=== PATIENT | female | born 1955 | race Two or more races ===

== ENCOUNTER 2023-05-05 21:52 | Inpatient (IN) ==
[2023-05-05 22:06] VITALS: BMI 23.0
--- NOTE | 2023-05-05 22:20 | DR.GENAD ---
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: she started feeling really weak yesterday which has progressively worsened; no abd pain, cp, sob, n/v/d or mental status changes; she was placed on lasix last week for bp/heart but has had no other changes in medications Complaint/Symptoms Chief Complaint:: PT STATES" CHANGED BP MEDS AND NOW FELS WEAK SINCE THE CHANGE OF MEDICATIONS" COVID-19 Coronavirus risk:travel/contact w/high risk person: No Has patient experienced Coronavirus symptoms: No Source History Provided: Patient Mode of Arrival Mode of Arrival: Ambulatory Timing Onset of Chief Complaint: 05/04/23 PMH PMH Past Medical History: Yes Past Medical History: Hypertension Past Surgical History: Yes Surgical History: CABG/Valve Surgery Family History History of Family Medical Conditions: No Family Medical History: Hypertension Social History Does patient currently use any type of tobacco product: No Have you used tobacco products in the last 12 months: No Type of Tobacco Use: None Does any household member use tobacco: No Alcohol Use: None Do you use any recreational Drugs:: No Lives With: Family Lives Where: Home Travel Risk Coronavirus risk:travel/contact w/high risk person: No Has patient experienced Coronavirus symptoms: No Infectious screening In the last 2 months have you had wt loss of >10#?: NO Have you had fever, night sweats or hemotysis?: No Have you traveled outside the country in the last 6 months?: No Isolation: Standard ROS Review of Systems Constitutional: No Symptoms Reported Eyes: No Symptoms Reported ENTM: No Symptoms Reported Respiratoy: No Symptoms Reported Cardiovascular: No Symptoms Reported Gastrointestinal/Abdominal: No Symptoms Reported Genitourinary: No Symptoms Reported Neurological: No Symptoms Reported Integumentary: No Symptoms Reported Hematologic/Lymphatic: No Symptoms Reported Endocrine: No Symptoms Reported Psychiatric: No Symptoms Reported PE Vital Signs Vitals: Temperature 98.6 F Pulse Rate 61 Pulse Rate 63 Respiratory Rate 18 Blood Pressure [Right Arm] 142/78 Blood Pressure 135/63 Blood Pressure 162/73 O2 Sat by Pulse Oximetry 97 O2 Sat by Pulse Oximetry 98 General Limitations: No Limitations General Appearance: Alert and In No Apparent Distress Head Head Exam: Normal Inspection Eyes Eye exam: Normal Appearance ENT ENT Exam: Normal Exam External Ear Exam: Normal External Inspection TM/Canal Exam: Bilateral: Normal Nose Exam: Normal Nose Exam Mouth Exam: Normal Inspection Throat Exam: Normal Inspection Neck Neck Exam: Normal Inspection Chest Chest Inspection: Normal Inspection Respiratory Respiratory Exam: Normal Lung Sounds Bilat Respiratory Exam: Bilateral: Clear to Auscultation Cardiovascular Cardiovascular Exam: Regular Rate and Normal Rhythm Abdominal Exam Abdominal Exam: Normal Inspection, Normal Bowel Sounds and Soft Extremities Extremities Exam: Normal Inspection Back Back Exam: Normal Inspection Neurologic Neurological Exam: Alert and Oriented X3 Psychiatric Psychiatric Exam: Normal Affect and Normal Mood Skin Skin Exam: Warm, Dry, Intact and Normal Color COURSE Reevaluation 1st: Unchanged (resting comfortably) ROR Labs Reviewed Laboratory Results Reviewed?: Yes Result Diagrams: 05/05/23 22:30 05/05/23 22:30 Laboratory: WBC 8.0 X10^3/uL (3.6-10.0) 05/05/23 22:30 RBC 4.13 X10^6/uL (3.5-5.4) 05/05/23 22:30 Hgb 12.0 g/dL (12.0-16.0) 05/05/23 22:30 Hct 34.3 % (36.0-47.0) L 05/05/23 22:30 MCV 83.0 fL (80.0-100.0) 05/05/23 22:30 MCH 29.1 pg (27.0-34.0) 05/05/23 22:30 MCHC 35.1 g/dL (33.0-35.0) H 05/05/23 22:30 RDW 13.6 % (11.6-16.5) 05/05/23 22:30 Plt Count 205 X10^3/uL (150.0-450.0) 05/05/23 22:30 Plt Count Comment Adequate (ADEQUATE) 05/05/23 22:30 MPV 7.4 fL (7.4-11.0) 05/05/23 22:30 Neut % (Auto) 80.0 % (42.0-75.0) H 05/05/23 22:30 Lymph % (Auto) 8.1 % (21.0-51.0) L 05/05/23 22:30 Greenlee % (Auto) 8.7 % (0.0-13.0) 05/05/23 22:30 Eos % (Auto) 0.8 % (0.9-2.9) L 05/05/23 22:30 Baso % (Auto) 2.4 % (0.2-1.0) H 05/05/23 22:30 Neut # (Auto) 6.4 x10^3/uL (2.2-4.8) H 05/05/23 22:30 Lymph # (Auto) 0.6 X10^3/uL (1.3-2.9) L 05/05/23 22:30 Greenlee # (Auto) 0.7 x10^3/uL (0.3-0.8) 05/05/23 22:30 Eos # (Auto) 0.1 x10^3/uL (0.0-0.2) 05/05/23 22:30 Baso # (Auto) 0.2 X10^3/uL (0.0-0.1) H 05/05/23 22:30 Absolute Nucleated RBC 0.0 /100WBC 05/05/23 22:30 Total Counted 100 05/05/23 22:30 Neutrophils % (Manual) 80 % (39-76) H 05/05/23 22:30 Lymphocytes % (Manual) 9 % (13-43) L 05/05/23 22:30 Monocytes % (Manual) 11 % (4-9) H 05/05/23 22:30 Plt Morphology Comment Normal (NORMAL) 05/05/23 22:30 RBC Morphology Normal (NORMAL) 05/05/23 22:30 Sodium 122 mmol/L (136-145) L* 05/05/23 22:30 Corrected Sodium TNP 05/05/23 22:30 Potassium 5.0 mmol/L (3.5-5.1) 05/05/23 22:30 Chloride 87 mmol/L (98-107) L 05/05/23 22:30 Carbon Dioxide 29.3 mmol/L (21-32) 05/05/23 22:30 BUN 12 mg/dL (7-18) 05/05/23 22:30 Creatinine 0.66 mg/dL (0.55-1.02) 05/05/23 22:30 Est GFR (MDRD) Af Amer > 60 (>60) 05/05/23 22:30 Est GFR (MDRD) Non-Af > 60 (>60) 05/05/23 22:30 Glucose 100 mg/dL (65-99) H 05/05/23 22:30 Calcium 8.4 mg/dL (8.5-10.1) L 05/05/23 22:30 Corrected Calcium TNP 05/05/23 22:30 Magnesium 1.8 mg/dL (2.0-2.9) L 05/05/23 22:30 Total Bilirubin 1.40 mg/dL (0.2-1.0) H 05/05/23 22:30 AST 14 Units/L (15-37) L 05/05/23 22:30 ALT 23 Units/L (12-78) 05/05/23 22:30 Alkaline Phosphatase 68 Units/L (46-116) 05/05/23 22:30 Total Protein 6.5 g/dL (6.4-8.2) 05/05/23 22:30 Albumin 3.7 g/dL (3.4-5.0) 05/05/23 22:30 Globulin 2.8 g/dL (2.5-4.5) 05/05/23 22:30 Albumin/Globulin Ratio 1.3 Ratio (1.1-2.1) 05/05/23 22:30 Opioid Opioid Risk Tool Age (Maikel box if 16-45): No History of Preadolescent Sexual Abuse: No Total: 0 Total Score Risk Category: Low Risk Copyright: Brandan VYAS predicting aberrant behaviors Discharge Plan Diagnosis Discharge Problem: Acute hyponatremia, Weakness Discharge Plan Patient Disposition: 09 ADMITTED INPATIENT Condition: Stable Prescriptions: No Action benazepril 20 mg tablet 20 mg PO QDAY azelastine 137 mcg (0.1 %) aerosol,spray 137 mcg INTRANASAL PRN PRN Label Comments: [NO ORIGINAL SIG] fluticasone propionate 50 mcg/actuation spray,suspension 50 mcg INTRANASAL DAILY naproxen 500 mg tablet 500 mg PO BID nitrofurantoin monohyd/m-cryst 100 mg capsule 100 mg PO BID Eliquis 5 mg tablet 5 mg PO BID nifedipine 30 mg tablet extended release 24hr 30 mg PO QDAY furosemide 40 mg tablet 40 mg PO QDAY atorvastatin 20 mg tablet 20 mg PO QPM telmisartan 80 mg tablet 80 mg PO QDAY Health Concerns: Post Hospitalization: new medications and changes needed to prevent readmission or further decline. Pt educated and given instructions on all concerns. Plan of Treatment: Continue with present treatment and follow up plan. Pt is to keep follow up appointment as instructed and take medications as ordered. Orders to Discharge Patient Discharge Orders: Discharge (Routine); Ordered 05/06/23 Ordered By: Pili López Follow ups/Referrals Follow ups/Referrals: NFD,None [Primary Care Provider] - 3 days Instructions Instructions: Hyponatremia, [id number]
[2023-05-05 22:45] LABS: BASOPHILS # (AUTO) 0.2 X10^3/uL (0.0-0.1); BASOPHILS % (AUTO) 2.4 % (0.2-1.0); EOSINOPHILS # (AUTO) 0.1 x10^3/uL (0.0-0.2); EOSINOPHILS % (AUTO) 0.8 % (0.9-2.9); HEMATOCRIT 34.3 % (36.0-47.0); LYMPHOCYTES # (AUTO) 0.6 X10^3/uL (1.3-2.9); LYMPHOCYTES % (AUTO) 8.1 % (21.0-51.0); MEAN CORPUSCULAR HEMOGLOBIN 29.1 pg (27.0-34.0); MEAN CORPUSCULAR HGB CONC 35.1 g/dL (33.0-35.0); MEAN PLATELET VOLUME 7.4 fL (7.4-11.0); MONOCYTES # (AUTO) 0.7 x10^3/uL (0.3-0.8); MONOCYTES % (AUTO) 8.7 % (0.0-13.0); NEUTROPHILS # (AUTO) 6.4 x10^3/uL (2.2-4.8); PLATELET COUNT 205 X10^3/uL (150.0-450.0); RED BLOOD COUNT 4.13 X10^6/uL (3.5-5.4); RED CELL DISTRIBUTION WIDTH 13.6 % (11.6-16.5)
[2023-05-05 22:51] LABS: ALANINE AMINOTRANSFERASE 23 Units/L (12-78); ALBUMIN 3.7 g/dL (3.4-5.0); ALKALINE PHOSPHATASE 68 Units/L (46-116); ASPARTATE AMINO TRANSFERASE 14 Units/L (15-37); BLOOD UREA NITROGEN 12 mg/dL (7-18); CALCIUM 8.4 mg/dL (8.5-10.1); CARBON DIOXIDE 29.3 mmol/L (21-32); CHLORIDE 87 mmol/L (98-107); CREATININE 0.66 mg/dL (0.55-1.02); GLUCOSE 100 mg/dL (65-99); MAGNESIUM 1.8 mg/dL (2.0-2.9); TOTAL PROTEIN 6.5 g/dL (6.4-8.2); eGFR NON BLACK RACES > 60 (>60)
[2023-05-05 22:55] LABS: SODIUM 122 mmol/L (136-145)
[2023-05-05 23:02] LABS: PLATELET MORPHOLOGY COMMENT NORMAL (NORMAL)
[2023-05-05] MEDS ORDERED: NS 1,000 ML IV 1,000 ML ONE (23:07)
[2023-05-05] MEDS: NS 1,000 ML IV 1,000 ML IV SCH (23:20)
[2023-05-06] MEDS ORDERED: NS 1,000 ML IV 1,000 ML IV SCH (02:00)
[2023-05-06] MEDS ORDERED: K-RIDER 10 MEQ/NS 100 ML 10 MEQ/100 ML BAG IV PRN (03:43)
[2023-05-06] MEDS ORDERED: POTASSIUM CHL 60 MEQ/NS 0.45% 500 ML IV PRN (03:43)
[2023-05-06] MEDS ORDERED: POTASSIUM CHLORIDE LIQ 20 MEQ UDC PO PRN (03:43)
[2023-05-06] MEDS ORDERED: KLOR-CON PO PRN (03:43)
[2023-05-06] MEDS ORDERED: POTASSIUM CHL 40 MEQ/NS 0.45% 500 ML IV PRN (03:43)
[2023-05-06] MEDS ORDERED: K-DUR TAB 20 MEQ PO PRN (03:43)
[2023-05-06] MEDS ORDERED: MICRO K EXTEN CAP 10 MEQ PO PRN (03:43)
[2023-05-06 06:51] LABS: BASOPHILS % (AUTO) 0.4 % (0.2-1.0); EOSINOPHILS % (AUTO) 0.8 % (0.9-2.9); HEMATOCRIT 33.6 % (36.0-47.0); HEMOGLOBIN 12.1 g/dL (12.0-16.0); LYMPHOCYTES # (AUTO) 0.9 X10^3/uL (1.3-2.9); LYMPHOCYTES % (AUTO) 15.3 % (21.0-51.0); MEAN CORPUSCULAR HEMOGLOBIN 29.7 pg (27.0-34.0); MEAN CORPUSCULAR VOLUME 82.5 fL (80.0-100.0); MEAN PLATELET VOLUME 7.5 fL (7.4-11.0); MONOCYTES # (AUTO) 0.6 x10^3/uL (0.3-0.8); MONOCYTES % (AUTO) 10.3 % (0.0-13.0); NEUTROPHILS # (AUTO) 4.1 x10^3/uL (2.2-4.8); NEUTROPHILS % (AUTO) 73.2 % (42.0-75.0); PLATELET COUNT 191 X10^3/uL (150.0-450.0); RED BLOOD COUNT 4.07 X10^6/uL (3.5-5.4); RED CELL DISTRIBUTION WIDTH 13.6 % (11.6-16.5); WHITE BLOOD COUNT 5.6 X10^3/uL (3.6-10.0)
[2023-05-06 06:55] LABS: ALANINE AMINOTRANSFERASE 23 Units/L (12-78); ALBUMIN 3.2 g/dL (3.4-5.0); ALKALINE PHOSPHATASE 59 Units/L (46-116); ASPARTATE AMINO TRANSFERASE 13 Units/L (15-37); BLOOD UREA NITROGEN 8 mg/dL (7-18); CALCIUM 8.2 mg/dL (8.5-10.1); CHLORIDE 97 mmol/L (98-107); COR CA(FOR HYPOALB) 8.8 mg/dL (8.5-10.1); CREATININE 0.58 mg/dL (0.55-1.02); GLUCOSE 90 mg/dL (65-99); POTASSIUM 4.6 mmol/L (3.5-5.1); SODIUM 131 mmol/L (136-145); TOTAL PROTEIN 6.1 g/dL (6.4-8.2); eGFR NON BLACK RACES > 60 (>60)
[2023-05-06] MEDS: NS 1,000 ML IV 1,000 ML IV SCH ×2 (09:13→20:23)
[2023-05-06] MEDS: ELIQUIS PO SCH ×2 (09:43→20:20)
[2023-05-06] MEDS: PATIENT'S HOME MEDICATION (Telmisartan 80 mg tablet) PO SCH (09:43)
[2023-05-06] MEDS: PROCARDIA XL PO SCH (09:43)
[2023-05-06 10:20] LABS: BILIRUBIN,URINE NEGATIVE (NEGATIVE); BLOOD/HEMOGLOBIN,URINE NEGATIVE (NEGATIVE); GLUCOSE, URINE NEGATIVE (NEGATIVE); KETONES,URINE NEGATIVE (NEGATIVE); LEUKOCYTE ESTERASE ,URINE 1+ (NEGATIVE); NITRITES,URINE NEGATIVE (NEGATIVE); PROTEIN,URINE NEGATIVE (NEGATIVE); UROBILINOGEN,URINE NORMAL (NORMAL)
[2023-05-06] MEDS: MACROBID CAP 100 MG EXT REL PO SCH ×2 (10:31→20:20)
[2023-05-06] MEDS: MAGNESIUM SULFATE 1 GRAM/100 mL PREMIX 1 G/100 ML BAG IV PRN ×2 (10:31→13:59)
[2023-05-06 10:45] LABS: APPEARANCE,URINE CLEAR (CLEAR); COLOR,URINE STRAW (YELLOW)
[2023-05-06 10:46] LABS: BACTERIA,URINE 3+ /HPF (NEGATIVE); RBC,URINE NONE SEEN /HPF (0-3); SQUAMOUS EPITHELIAL CELL,UR RARE /HPF (NEGATIVE)
[2023-05-06] MEDS: NAPROSYN PO SCH (20:20)
[2023-05-07] MEDS: NS 1,000 ML IV 1,000 ML IV SCH ×4 (05:49→23:30)
[2023-05-07] MEDS: PROCARDIA XL PO SCH (08:44)
[2023-05-07] MEDS: ELIQUIS PO SCH ×2 (08:44→20:52)
[2023-05-07] MEDS: NAPROSYN PO SCH ×2 (08:44→20:53)
[2023-05-07] MEDS: MACROBID CAP 100 MG EXT REL PO SCH ×2 (08:44→20:52)
[2023-05-07] MEDS: PATIENT'S HOME MEDICATION (Telmisartan 80 mg tablet) PO SCH (08:45)
[2023-05-07 09:16] LABS: ALANINE AMINOTRANSFERASE 26 Units/L (12-78); ALBUMIN 3.5 g/dL (3.4-5.0); ALKALINE PHOSPHATASE 67 Units/L (46-116); ASPARTATE AMINO TRANSFERASE 16 Units/L (15-37); BLOOD UREA NITROGEN 11 mg/dL (7-18); CALCIUM 8.1 mg/dL (8.5-10.1); CARBON DIOXIDE 26.6 mmol/L (21-32); CHLORIDE 100 mmol/L (98-107); CREATININE 0.74 mg/dL (0.55-1.02); GLUCOSE 105 mg/dL (65-99); POTASSIUM 3.9 mmol/L (3.5-5.1); SODIUM 134 mmol/L (136-145); TOTAL PROTEIN 6.4 g/dL (6.4-8.2); eGFR NON BLACK RACES > 60 (>60)
--- NOTE | 2023-05-07 11:19 | EKG ---
Test Reason : chest pain Blood Pressure : */* mmHG Vent. Rate : 64 BPM Atrial Rate : 64 BPM P-R Int : 170 ms QRS Dur : 90 ms QT Int : 454 ms P-R-T Axes : 84 30 220 degrees QTc Int : 468 ms Normal sinus rhythm Moderate voltage criteria for LVH, may be normal variant ( R in aVL , Sokolow-Jones ) Septal infarct , age undetermined Marked ST abnormality, possible inferolateral subendocardial injury Abnormal ECG No previous ECGs available Confirmed by Julio Burnett ([id number]) on 05/07/2023 8:19:53 PM Referred By: Confirmed By: Julio Burnett
[2023-05-07] MEDS ORDERED: ASPIRIN PO ONE (11:57)
[2023-05-07] MEDS ORDERED: ECOTRIN TAB 325 MG PO ONE (12:05)
[2023-05-07] MEDS: MAGNESIUM SULFATE 1 GRAM/100 mL PREMIX 1 G/100 ML BAG IV PRN ×2 (14:11→17:03)
[2023-05-07] MEDS: LOPRESSOR TAB 25 MG PO SCH ×2 (14:11→20:53)
--- NOTE | 2023-05-07 17:09 | EKG ---
Test Reason : Chest pain Blood Pressure : */* mmHG Vent. Rate : 58 BPM Atrial Rate : 58 BPM P-R Int : 164 ms QRS Dur : 94 ms QT Int : 476 ms P-R-T Axes : 79 29 208 degrees QTc Int : 467 ms Sinus bradycardia Voltage criteria for left ventricular hypertrophy ( R in aVL , Sokolow-Jones , Josue product ) Marked ST abnormality, possible inferolateral subendocardial injury Abnormal ECG When compared with ECG of 07-MAY-2023 11:11, (Unconfirmed) Criteria for Septal infarct are no longer present Confirmed by Julio Burnett ([id number]) on 05/07/2023 8:18:46 PM Referred By: Confirmed By: Julio Burnett
--- NOTE | 2023-05-07 23:08 | EKG ---
Test Reason : chest pain Blood Pressure : */* mmHG Vent. Rate : 53 BPM Atrial Rate : 53 BPM P-R Int : 180 ms QRS Dur : 100 ms QT Int : 496 ms P-R-T Axes : 79 30 193 degrees QTc Int : 465 ms Sinus bradycardia Voltage criteria for left ventricular hypertrophy ( R in aVL , Sokolow-Jones , Josue product ) Marked ST abnormality, possible lateral subendocardial injury Abnormal ECG When compared with ECG of 07-MAY-2023 17:02, No significant change was found Confirmed by Julio Burnett ([id number]) on 05/08/2023 8:01:04 AM Referred By: Confirmed By: Julio Burnett
[2023-05-08 00:08] VITALS: O2SAT 98
--- NOTE | 2023-05-08 04:54 | EKG ---
Test Reason : chest pain Blood Pressure : */* mmHG Vent. Rate : 57 BPM Atrial Rate : 57 BPM P-R Int : 166 ms QRS Dur : 90 ms QT Int : 486 ms P-R-T Axes : 77 29 204 degrees QTc Int : 473 ms Sinus bradycardia Left ventricular hypertrophy with repolarization abnormality ( R in aVL , Romhilt-Morton ) Cannot rule out Septal infarct , age undetermined Abnormal ECG When compared with ECG of 07-MAY-2023 22:57, (Unconfirmed) Minimal criteria for Septal infarct are now present Confirmed by Julio Burnett ([id number]) on 05/08/2023 8:00:34 AM Referred By: Confirmed By: Julio Burnett
[2023-05-08 06:01] LABS: BASOPHILS # (AUTO) 0.1 X10^3/uL (0.0-0.1); BASOPHILS % (AUTO) 1.2 % (0.2-1.0); EOSINOPHILS # (AUTO) 0.1 x10^3/uL (0.0-0.2); EOSINOPHILS % (AUTO) 2.4 % (0.9-2.9); HEMATOCRIT 33.2 % (36.0-47.0); HEMOGLOBIN 11.8 g/dL (12.0-16.0); LYMPHOCYTES # (AUTO) 0.9 X10^3/uL (1.3-2.9); LYMPHOCYTES % (AUTO) 18.6 % (21.0-51.0); MEAN CORPUSCULAR HEMOGLOBIN 29.8 pg (27.0-34.0); MEAN CORPUSCULAR HGB CONC 35.6 g/dL (33.0-35.0); MEAN CORPUSCULAR VOLUME 83.6 fL (80.0-100.0); MONOCYTES # (AUTO) 0.3 x10^3/uL (0.3-0.8); MONOCYTES % (AUTO) 6.7 % (0.0-13.0); NEUTROPHILS # (AUTO) 3.3 x10^3/uL (2.2-4.8); NEUTROPHILS % (AUTO) 71.1 % (42.0-75.0); PLATELET COUNT 209 X10^3/uL (150.0-450.0); RED BLOOD COUNT 3.97 X10^6/uL (3.5-5.4); RED CELL DISTRIBUTION WIDTH 13.6 % (11.6-16.5); WHITE BLOOD COUNT 4.6 X10^3/uL (3.6-10.0)
[2023-05-08 06:19] LABS: ALANINE AMINOTRANSFERASE 23 Units/L (12-78); ALBUMIN 3.2 g/dL (3.4-5.0); ALKALINE PHOSPHATASE 61 Units/L (46-116); ASPARTATE AMINO TRANSFERASE 16 Units/L (15-37); BLOOD UREA NITROGEN 10 mg/dL (7-18); CALCIUM 8.2 mg/dL (8.5-10.1); CARBON DIOXIDE 27.3 mmol/L (21-32); CHLORIDE 103 mmol/L (98-107); COR CA(FOR HYPOALB) 8.8 mg/dL (8.5-10.1); CREATININE 0.63 mg/dL (0.55-1.02); GLUCOSE 82 mg/dL (65-99); MAGNESIUM 1.8 mg/dL (2.0-2.9); POTASSIUM 4.2 mmol/L (3.5-5.1); SODIUM 137 mmol/L (136-145); eGFR NON BLACK RACES > 60 (>60)
[2023-05-08 08:50] VITALS: BP 170/72; PULSE 65; TEMP 98.1
[2023-05-08] MEDS: LOPRESSOR TAB 25 MG PO SCH (09:55)
[2023-05-08] MEDS: ELIQUIS PO SCH (09:55)
[2023-05-08] MEDS: MAGNESIUM SULFATE 1 GRAM/100 mL PREMIX 1 G/100 ML BAG IV PRN (09:55)
[2023-05-08] MEDS: NAPROSYN PO SCH (09:55)
[2023-05-08] MEDS: MACROBID CAP 100 MG EXT REL PO SCH (09:55)
[2023-05-08] MEDS ORDERED: PROCARDIA XL 24-hr PO SCH (10:00)
[2023-05-08] MEDS: NS 1,000 ML IV 1,000 ML IV SCH (10:34)
[2023-05-08] MEDS: PATIENT'S HOME MEDICATION (Telmisartan 80 mg tablet) PO SCH (10:35)
== END 2023-05-08 12:40 | disposition home or self-care (01) | DRG 641 ==
LOC: ER 21:57 → MED/SURG 05-06 01:13
PROVIDERS: ADMIT Family Medicine; ATTEND Obstetrics & Gynecology Obstetrics
DX: I25.10 Atherosclerotic heart disease of native coronary artery without angina pectoris; E87.1 Hypo-osmolality and hyponatremia; E83.42 Hypomagnesemia; R53.1 Weakness; N39.0 Urinary tract infection, site not specified; I10 Essential (primary) hypertension; R07.89 Other chest pain